=== PATIENT | male | born 1995 | race Two or more races ===

== ENCOUNTER → 2024-02-02 | Outpatient (CLI) | payer BC | END | disposition home or self-care (01) | LOC: LAB 13:03 | PROVIDERS: ATTEND Family Medicine | DX: D48.5 Neoplasm of uncertain behavior of skin (principal) ==

== ENCOUNTER 2024-03-08 15:05 | Emergency (ER) | payer BC ==
[~2024-03-08] VITALS: Ht 175.3 cm; Wt 71.4 kg
[2024-03-08 15:13] VITALS: BP 120/82; PULSE 72; RESP 16; O2SAT 97
== END 2024-03-08 16:51 | disposition left against medical advice (07) ==
LOC: ER 15:05
DX: S00.81XA Abrasion of other part of head, initial encounter (principal); Z53.21 Procedure and treatment not carried out due to patient leaving prior to being seen by health care provider; V29.99XA Rider (driver) (passenger) of other motorcycle injured in unspecified traffic accident, initial encounter; Y93.89 Activity, other specified; Y92.89 Other specified places as the place of occurrence of the external cause; Y99.8 Other external cause status

== ENCOUNTER 2024-03-15 16:00 | Emergency (ER) | payer BC ==
[~2024-03-15] VITALS: Ht 175.3 cm; Wt 72.3 kg
[2024-03-15 17:08] LABS: Basophils # (auto) 0 10 ^3/uL (0-0.2); Basophils % (auto) 0.4 % (0.0-2.0); Eosinophils # (auto) 0.2 10 ^3/uL (0-0.8); Eosinophils % (auto) 3.7 % (0.0-7.0); Hematocrit 44.4 % (41.0-53.0); Hemoglobin 15.3 g/dL (13.5-17.5); Lymphocytes # (auto) 1.5 10 ^3/uL (0.4-5.4); Lymphocytes % (auto) 30.5 % (10.0-50.0); Mean Corpuscular Hemoglobin 31.8 pg (28.0-32.0); Mean Corpuscular Hgb Conc. 34.4 g/dL (32.0-36.0); Mean Corpuscular Volume 92.4 fL (80.0-100.0); Monocytes # (auto) 0.3 10 ^3/uL (0-1.3); Monocytes % (auto) 5.9 % (0.0-12.0); Neutrophils # (auto) 2.9 10 ^3/uL (1.6-8.6); Neutrophils % (auto) 59.5 % (37.0-80.0); Nucleated Red Blood Cells % 0.1 %; Platelet Count (auto) 272 10^3/uL (140-450); Red Cell Distribution Width 12.4 % (11.8-14.3); White Blood Cell 4.9 10^3/uL (4.4-10.8)
[2024-03-15 17:12] LABS: Chloride 104 mmol/L (98-107); Potassium 4.2 mmol/L (3.5-5.1); Sodium 139 mmol/L (136-145)
[2024-03-15 17:13] LABS: Anion Gap 3 (5-15); Carbon Dioxide 32 mmol/L (20-30)
[2024-03-15 17:18] LABS: BUN/Creatinine Ratio 11.8 (10.0-20.0); Blood Urea Nitrogen 12 mg/dL (9-23); Glucose 78 mg/dL (74-106)
[2024-03-15] MEDS ORDERED: METH4PAK PO (18:23)
[2024-03-15] MEDS ORDERED: CLIN1CAP70 PO (18:23)
[2024-03-15] MEDS ORDERED: IBUP-1456 PO (18:23)
[2024-03-15] MEDS: CLINDAMYCIN HCL 150 MG CAP PO ONE (18:33)
[2024-03-15] MEDS: DexAMETHasone SOD PHOS 10MG/1ML VIAL INJ IM ONE (18:33)
[2024-03-15 18:36] VITALS: BP 131/81; PULSE 68; RESP 19; TEMP 98.6; O2SAT 100
== END 2024-03-15 18:56 | disposition home or self-care (01) ==
LOC: ER 16:00
DX: K11.20 Sialoadenitis, unspecified (principal); M54.2 Cervicalgia
CPT/HCPCS: 36415; 80048; 85025; 96372; 99283; J1100